=== PATIENT | male | born 1990 | race Caucasian/White ===

== ENCOUNTER 2019-06-27 13:19 | Emergency (ER) | payer OTHER ==
[~2019-06-27] VITALS: Ht 167.6 cm; Wt 65.8 kg
[2019-06-27] MEDS ORDERED: KEFLEX500 M1 PO (14:22)
[2019-06-27 14:47] VITALS: BP 135/85
== END 2019-06-27 14:48 | disposition home or self-care (01) ==
LOC: M.ERS 13:19
DX: T23.202A Burn of second degree of left hand, unspecified site, initial encounter (principal); T23.201A Burn of second degree of right hand, unspecified site, initial encounter; T31.0 Burns involving less than 10% of body surface; X10.2XXA Contact with fats and cooking oils, initial encounter; Y93.89 Activity, other specified; Y92.89 Other specified places as the place of occurrence of the external cause; Y99.0 Civilian activity done for income or pay

== ENCOUNTER → 2019-07-05 | Outpatient (CLI) | payer OTHER ==
[~2019-07-05] MED LIST: KEFLEX500 M1 PO
== END ==
LOC: M.WC 07:12
DX: T22.331A Burn of third degree of right upper arm, initial encounter (principal); F17.200 Nicotine dependence, unspecified, uncomplicated; Y93.89 Activity, other specified; Y92.89 Other specified places as the place of occurrence of the external cause; Y99.8 Other external cause status; X08.8XXA Exposure to other specified smoke, fire and flames, initial encounter

== ENCOUNTER → 2019-07-11 | Outpatient (CLI) | payer OTHER | LOC: M.WC 05:43 | DX: T22.331D Burn of third degree of right upper arm, subsequent encounter (principal); F17.290 Nicotine dependence, other tobacco product, uncomplicated; X08.8XXD Exposure to other specified smoke, fire and flames, subsequent encounter ==

== ENCOUNTER → 2019-07-17 | Outpatient (CLI) | payer OTHER | LOC: M.WC 08:26 | DX: T22.331D Burn of third degree of right upper arm, subsequent encounter (principal); T31.0 Burns involving less than 10% of body surface; F17.290 Nicotine dependence, other tobacco product, uncomplicated; X08.8XXD Exposure to other specified smoke, fire and flames, subsequent encounter ==

== ENCOUNTER → 2019-07-26 | Outpatient (CLI) | payer OTHER | LOC: M.WC 05:27 | DX: T22.30XD Burn of third degree of shoulder and upper limb, except wrist and hand, unspecified site, subsequent encounter (principal); T31.0 Burns involving less than 10% of body surface; F17.200 Nicotine dependence, unspecified, uncomplicated; X08.8XXD Exposure to other specified smoke, fire and flames, subsequent encounter ==

== ENCOUNTER → 2019-08-03 | Outpatient (CLI) | payer OTHER | LOC: M.WC 04:58 | DX: T22.331D Burn of third degree of right upper arm, subsequent encounter (principal); T31.0 Burns involving less than 10% of body surface; F17.290 Nicotine dependence, other tobacco product, uncomplicated; X08.8XXD Exposure to other specified smoke, fire and flames, subsequent encounter ==

== ENCOUNTER → 2019-08-10 | Outpatient (CLI) | payer OTHER | LOC: M.WC 04:49 | DX: T22.331D Burn of third degree of right upper arm, subsequent encounter (principal); T31.0 Burns involving less than 10% of body surface; F17.290 Nicotine dependence, other tobacco product, uncomplicated; X08.8XXD Exposure to other specified smoke, fire and flames, subsequent encounter ==